=== PATIENT | female | born 1980 | race Caucasian/White ===

== ENCOUNTER 2018-03-05 21:32 | Emergency (ER) | payer OTHER ==
[2018-03-05] MEDS ORDERED: LEXAPRO 10MG10 MG PO (21:43)
[2018-03-05] MEDS ORDERED: ASPIRIN E.C. 8181 MG PO (21:44)
[2018-03-05] MEDS ORDERED: ZYRTEC ALLERGY10 MG PO (21:44)
[2018-03-05] MEDS ORDERED: WELLBUTRIN (21:44)
[2018-03-05] MEDS ORDERED: PRILOSEC 20MG20 MG PO (21:44)
[2018-03-05 22:56] VITALS: BP 144/93
== END 2018-03-05 22:56 | disposition home or self-care (01) ==
LOC: ED 21:32
DX: S93.602A Unspecified sprain of left foot, initial encounter (principal); X50.1XXA Overexertion from prolonged static or awkward postures, initial encounter; Y92.481 Parking lot as the place of occurrence of the external cause; Z79.899 Other long term (current) drug therapy; Z86.718 Personal history of other venous thrombosis and embolism; Z79.82 Long term (current) use of aspirin

== ENCOUNTER → 2021-05-27 | Outpatient (CLI) | payer BC ==
[~2021-05-27] MED LIST: ASPIRIN E.C. 8181 MG PO; LEXAPRO 10MG10 MG PO; PRILOSEC 20MG20 MG PO; WELLBUTRIN; ZYRTEC ALLERGY10 MG PO
== END ==
LOC: VAS 14:18
DX: Z13.6 Encounter for screening for cardiovascular disorders (principal); M79.661 Pain in right lower leg; Z86.718 Personal history of other venous thrombosis and embolism

== ENCOUNTER → 2024-05-19 | Outpatient (CLI) | payer BC ==
[~2024-05-19] MED LIST changes: +Iohexol 300 - 100 ML VIAL IV ONE
== END ==
LOC: RAD 13:21
DX: N20.0 Calculus of kidney (principal)
CPT/HCPCS: Q9967

== ENCOUNTER → 2024-06-25 | Outpatient (CLI) | payer BC ==
[~2024-06-25] MED LIST changes: -Iohexol 300 - 100 ML VIAL IV ONE
== END ==
LOC: MAMMO 11:29
DX: Z12.31 Encounter for screening mammogram for malignant neoplasm of breast (principal)